=== PATIENT | female | born 1955 | race Caucasian/White ===

== ENCOUNTER 2019-02-21 23:07 | Emergency (ER) | payer OTHER, SELFPAY ==
--- NOTE | 2019-02-21 23:01 | DI.RAD.S_ITS ---
PROCEDURE: XR WRIST RT MIN 3V INDICATIONS: fall with right wrist deformity TECHNIQUE: 3 views of the wrist were acquired. COMPARISON: None. FINDINGS: Bones: There is a fracture seen of the right distal radius, with impaction and comminution. There is intra-articular involvement. There is mild dorsal angulation seen. There is a minimally displaced ulnar styloid fracture seen. No carpal bone fracture is seen. The radiocarpal dislocation can be seen. Degenerative changes are seen, which are most prominent involving the radial aspect of the carpus. No suspicious lytic or blastic lesions are seen. Soft tissues: No suspicious soft tissue calcifications. IMPRESSION: There is an impacted, comminuted, intra-articular fracture of the distal radius, with mild dorsal angulation. There is an associated minimally displaced ulnar styloid fracture. Dictated by: Long Aguirre M.D. on 02/22/2019 at 8:17 Approved by: Long Aguirre M.D. on 02/22/2019 at 8:18
[2019-02-21 23:06] VITALS: BP 148/77; PULSE 72; RESP 15; TEMP 36.4; O2SAT 98; BMI 21.2
--- NOTE | 2019-02-21 23:53 | PC.NURSE ---
Pt removed ring from R ring finger and placed it in the zipper pocket in her pants.
--- NOTE | 2019-02-22 00:32 | ED.FALL ---
HPI - Fall General Chief Complaint: Fall Stated Complaint: ETOH, possible fall, wrist deformity Time Seen by Provider: 02/21/19 23:11 Source: patient and EMS Mode of arrival: EMS Limitations: no limitations History of Present Illness HPI Narrative: 63-year-old female nonsmoker presents by EMS for evaluation of a ground level fall in which she landed on an outstretched right wrist and suffered an injury with obvious deformity. She was admittedly drinking a bit tonight but did not hit her head and has no neck or back pain. She has full recall, is alert and oriented. Her pain is worse with motion and improves with rest. She denies any numbness, tingling or weakness. MD complaint: fall Onset (ago): minute(s) Fall from: standing Fall witnessed: no Place fall occurred: home Loss of consciousness: none Prolonged down time: no Symptoms prior to fall: none Context: tripped/slipped Location of injury - extremities: Right: forearm Severity: mild Related Data Previous Rx's Medication Instructions Recorded hydrocodone-acetaminophen 1 tab PO Q4-6H PRN #10 tab 02/22/19 Allergies Allergy/AdvReac Type Severity Reaction Status Date / Time Sulfa (Sulfonamide Allergy Verified 02/21/19 23:14 Antibiotics) Review of Systems Constitutional Constitutional: Denies chills, Denies fatigue, Denies fever(s), Denies frequent falls, Denies lethargy and Denies weakness Eyes Eyes: Denies change in vision, Denies eye discharge, Denies irritation and Denies loss of vision ENT Ears, Nose, Mouth, and Throat: Denies change in voice, Denies dizziness, Denies neck pain, Denies sore throat and Denies throat swelling Cardiovascular Cardiovascular: Denies chest pain, Denies irregular heart rhythm, Denies lightheadedness, Denies palpitations, Denies dyspnea, Denies dyspnea on exertion and Denies orthopnea Respiratory Respiratory: Denies cough, Denies dyspnea, Denies dyspnea on exertion and Denies wheezing Gastrointestinal Gastrointestinal: Denies abdominal pain, Denies change in bowel habits, Denies diarrhea, Denies nausea and Denies vomiting Genitourinary Genitourinary: Denies hematuria, Denies flank pain, Denies urinary incontinence and Denies urinary urgency Musculoskeletal Musculoskeletal: Denies back pain, Reports joint swelling, Reports limited range of motion, Denies muscle weakness, Denies neck pain, Denies numbness and Denies tingling Integumentary/Breasts Skin/Breast: Denies pruritus, Denies erythema, Denies rash and Denies wounds Neurologic Neurologic: Denies behavioral changes, Denies confusion, Denies dizziness, Denies frequent falls, Denies loss of vision, Denies numbness, Denies tingling and Denies weakness Psychiatric Psychiatric: Denies anxiety, Denies behavioral changes, Denies confusion, Denies depression, Denies homicidal ideation and Denies suicidal ideation Endocrine Endocrine: Denies fatigue, Denies flushing and Denies palpitations Hematologic/Lymphatic Hematologic/Lymphatic: Denies easy bruising Allergic/Immunologic Allergic/Immunologic: Denies urticaria, Denies throat swelling and Denies wheezing Patient History Social History Smoking Status: Never smoker alcohol intake frequency: 3 or more drinks per day Alcohol type: wine Substance Use Type: does not use Exam Narrative Exam Narrative: GENERAL: [63] year old patient appears stated age. Well-nourished, well-developed patient, in mild distress. GCS 15, alert and oriented, full capacity HEAD: Atraumatic. Normocephalic. EYES: Pupils equal round and reactive. Extraocular motions intact. No scleral icterus. No injection or drainage. ENT: Nose without bleeding, purulent drainage. Throat without erythema, tonsillar hypertrophy or exudate. Airway patent. NECK: Trachea midline. Non tender CARDIOVASCULAR: Regular rate and rhythm without murmurs, gallops, or rubs. RESPIRATORY: Clear to auscultation. Breath sounds equal bilaterally. No wheezes, rales, or rhonchi. GASTROINTESTINAL: Abdomen soft, non-tender, nondistended. EXTREMITIES: Pain to right wrist with obvious deformity BACK: Nontender without deformity or crepitance. No flank tenderness. NEURO: AOx3. SKIN: No rash or erythema of visible areas Initial Vital Signs Initial Vital Signs: Vital Signs Temperature 97.6 F 02/21/19 23:06 Pulse Rate 72 02/21/19 23:06 Respiratory Rate 15 02/21/19 23:06 Blood Pressure 148/77 H 02/21/19 23:06 Pulse Oximetry 98 02/21/19 23:06 Procedures Nerve Block Nerve Block 1: Time out performed: Yes Local Anesthetic: bupivacaine 0.5% Amount of anesthesia used (mL): 3 Side: right Nerve Blocks: hematoma block Patient Tolerated Procedure: Well Complications: none Orthopedic Fracture Reduction Fracture #1: Time Out Performed: Yes Side: right Technique: direct manipulation and traction/counter-traction Post-reduction neuro exam: intact Post-reduction vascular exam: intact Splint Applied: Yes Patient Tolerated Procedure: Well Orthopedic Splinting/Casting Injury #1: Side: right Upper Extremity Injury Location: wrist Upper Extremity Immobilizer: sling/shoulder immobilizer and sugar tong splint Post splinting neuro exam: intact Post splinting vascular exam: intact Placed by: Provider Course Orders Ordered: ED Orders 02/21/19 23:01 XR wrist RT min 3V Stat Discontinued Medications Hydrocodone Bitart/Acetaminophen (Vicodin Prepack) 1 bottle MISC SEEINSTR ONE Stop: 02/22/19 00:34 Last Admin: 02/22/19 01:02 Dose: 1 bottle Documented by: WARREN Bupivacaine HCl (Sensorcaine 0.5% (Pf)) 1 ml INJ INTRA-OP ONE Stop: 02/21/19 23:55 Last Admin: 02/22/19 01:02 Dose: 1 ml Documented by: WARREN Vital Signs Vital signs: Vital Signs - 8 hr 02/21/19 23:06 02/22/19 01:07 Temperature 97.6 F Pulse Rate 72 61 Respiratory Rate 15 16 Blood Pressure 148/77 H Blood Pressure [Left Arm] 122/82 Pulse Oximetry 98 95 MDM - Fall Imaging Data Wrist Xray: Attestation: I personally reviewed and interpreted this imaging study as follows: My impression: Distal radius fx Discharge Plan Departure Patient Disposition: Home Clinical Impression: Distal radius fracture, right Qualifiers: Encounter type: initial encounter Fracture type: closed Fracture morphology: Colles' Qualified Code(s): S52.531A - Colles' fracture of right radius, initial encounter for closed fracture Discharge Date/Time: 02/22/19 01:10 Activity Restrictions/Additional Instructions: *You have been diagnosed with [right distal radius fracture] *What to do: *Take medications as directed *Follow up with [facility] in 2-3 days, call for an appointment. Let them know you were seen in the Emergency Department and that we ask that you be seen in follow up *Return to ER if you should have any new, worsening or concerning symptoms Prescriptions: New hydrocodone-acetaminophen 5-325 mg tablet 1 tab PO Q4-6H PRN (Reason: pain) Qty: 10 RF: 0 Referrals: Kamila Mcdonnell MD [Physician] -
[2019-02-22] MEDS: HYDROCODONE/ACET 5/325 PREPACK 1 BOTTLE MISC (01:02)
[2019-02-22] MEDS: BUPIVACAINE 0.5% (PF) VIAL 1 ML INJ (01:02)
[2019-02-22 01:07] VITALS: BP 122/82; PULSE 61; RESP 16; O2SAT 95
== END 2019-02-22 01:10 | disposition home or self-care (01) ==
PROVIDERS: Emergency Provider Emergency Medicine
DX: S52.531A Colles' fracture of right radius, initial encounter for closed fracture (principal); W18.30XA Fall on same level, unspecified, initial encounter
CPT/HCPCS: 25565; 64450; 73110; 99282; 99283

== ENCOUNTER 2019-03-02 09:23 | Day surgery (SDC) | payer OTHER, SELFPAY ==
[2019-03-02 09:40] VITALS: BP 123/66; PULSE 57; RESP 16; TEMP 36.7; O2SAT 98; BMI 21.2
[2019-03-02] MEDS: LACTATED RINGERS 1,000 ML 42 ML IV ×2 (10:08→12:23)
--- NOTE | 2019-03-02 10:37 | PM.PREOP ---
Pre-operative Note Interval Note History & Physical reviewed/Exam performed by Physician: Yes Changes to H&P: No
[2019-03-02] MEDS: MIDAZOLAM 2 MG/2 ML VIAL IV (10:54)
[2019-03-02] MEDS: fentaNYL 100 MCG/2 ML INJ 50 MCG IV (10:55)
--- NOTE | 2019-03-02 11:16 | SUR.PREOP ---
Block start time 1054. Monitoring initiated and maintained throughout procedure. 2 L of oxygen administered via NC; medications given per anesthesiologist instructions. Patient remained stable throughout procedure, no adverse reactions noted. Block end time 1107.
[2019-03-02] MEDS: CEFAZOLIN 2 GM/100 ML FROZ.PIGGY IV (11:28)
--- NOTE | 2019-03-02 11:49 | SUR.OPER ---
Supine on padded OR bed, head on pillow, Left arm secured on padded arm board at <90 degrees abduction, right arm prepped in sterile field on hand table, legs uncrossed, safety belt at thigh, blanket over lower legs.
[2019-03-02] MEDS: BUPIVACAINE 0.25% W/ EPI 30 ML VIAL INJ (11:59)
[2019-03-02 13:20] VITALS: BP 125/73; PULSE 77; RESP 22; TEMP 36.2; O2SAT 96
[2019-03-02 13:25] VITALS: BP 110/70; PULSE 80; RESP 15; O2SAT 95
[2019-03-02 13:30] VITALS: BP 120/78; PULSE 82; RESP 13; O2SAT 94
[2019-03-02 13:35] VITALS: PULSE 81; RESP 15; O2SAT 94
--- NOTE | 2019-03-02 13:37 | P.OP_ITS ---
Operative Date/Time/Diagnoses Date of procedure: 03/02/19 Time of procedure: 11:45 Pre-op diagnosis: Closed intra-articular fracture right distal radius S52. 571 Post-op diagnosis: same Procedure & Clinicians Procedure: 1. Open reduction internal fixation right distal radius fracture intra-articular. CPT code 16568 Same procedure as scheduled: Yes Indications: The patient is a 63-year-old female that sustained a fall onto her wooden floor causing a displaced right hand distal radius fracture. The patient is right-hand dominant. She was indicated for open reduction internal fixation prevent malunion prolonged dysfunction loss of range of motion wrist arthritis. Risks benefits and alternatives to procedure were discussed at length the patient expressed understanding these included but were not limited to bleeding, infection, damage to nerves, prominent hardware, pain, malunion, nonunion, blood clots, pulmonary embolism, cardiovascular risks associated with general anesthesia. Consent was signed in the office. Surgeon: Kamila Mcdonnell Click Yes if Unassisted: Yes Anesthesia Type: General, Peripheral nerve block and Local Operative Notes Findings: Dorsally displaced distal radius fracture with shortening and comminution. Small simple split into the articular surface Closure Type: primary Specimen(s): none sent Prosthetic devices, grafts, tissues, transplants, or devices: Hand innovations short right side distal radius volar locking plate and screws Estimated Blood Loss (mL): 5 Blood products transfused: none Tourniquet time (min): 63 Procedure in detail: Patient is is a in the right distal radius fracture was indicated for operative reduction and fixation to prevent malunion a prolonged dysfunction and loss range of motion wrist arthritis. The risks benefits and alternatives of procedure were discussed at length the patient. Patient was seen in the preoperative area the site of surgery was marked. This was the right wrist. The patient was brought to the operating room and placed on the operative table in a standard fashion in the supine position with the arm on a hand table. General anesthesia was administered. Preoperative block was placed with the anesthesia team for postoperative pain control. SCDs were on the legs and all bony prominences were padded. Well-padded brachial tourniquet was placed. A formal time-out procedure was called to confirm the patient's side and site of surgery and administration of appropriate preoperative antibiotics. All were in agreement. The standard FCR approach was drawn onto the wrist. Exsanguination was used the tourniquet was elevated 250 mm of mercury. Sharp plate was used for the standard FCR approach to the wrist and the incision was made. The FCR was exposed. The sheath was opened and the tendon was retracted ulnar to protect the palmar cutaneous branch of the median nerve and the neurovascular structures. Floor of the FCR was opened to expose the deep muscles. The FPL was retracted ulnarly and the pronator quadratus was released in an L fashion from the radial border and reflected ulnar to expose the distal radius in the distal fracture. Fracture was disimpacted and cleaned. The brachioradialis was released from the distal fragment. Fracture was reduced with traction, flexion ulnar deviation. A 045 K-wire was advanced percutaneously from the radial styloid to the metaphysis to hold the reduction. Reduction was checked on fluoroscopy and the radial inclination and volar tilt were recreated. A short 3 hole right side hand innovations distal radius loc sherif plate was positioned and pinned in place. This was checked under fluoroscopy for satisfactory position. Then a nonlocking 3 5 screw was placed in the oblong hole bicortical. The nonlocking screw was placed distally to bring the bone to the plate followed by locking screw placement distally. K- wires removed and final nonlocking screws were placed in the shaft. Final intraoperative images were obtained and reviewed demonstrating no evidence of intra-articular penetration or hardware prominence. Wrist motion was checked and a full range of motion was maintained in the DRUJ was stable. Wound was then irrigated and closed in layers. Three 0 Vicryl was placed deep subcutaneous with 4 0 Monocryl and 3 O nylon in the skin. Prior to closure the tourniquet was released and hemostasis was achieved. Sterile dressings and a volar splint were applied. There were no immediate complications noted. All surgical counts were correct. Patient tolerated the procedure well was taken recovery room. Complications: none Post-operative Condition: stable Disposition: PACU Plan for aftercare: Limited weight-bearing no more than a coffee cup or [address] Keep clean dry and intact. Elevate and ice for edema control. Follow up in 2 weeks for x-rays and suture removal and placement of removal wrist brace.
--- NOTE | 2019-03-02 13:37 | SUR.PHASEI ---
To OPD, A&O, talking, taking ice chips, CMS as expected, warm, refill adequate.
[2019-03-02 14:25] VITALS: BP 108/69; PULSE 63; RESP 16; TEMP 36.3; O2SAT 98
== END 2019-03-02 14:40 | disposition home or self-care (01) ==
PROVIDERS: Visit Provider Orthopaedic Surgery Foot and Ankle Surgery
PROC: (CPT 25608; principal; 2019-03-02 11:15)
DX: S52.571A Other intraarticular fracture of lower end of right radius, initial encounter for closed fracture (principal); G89.18 Other acute postprocedural pain; W01.0XXA Fall on same level from slipping, tripping and stumbling without subsequent striking against object, initial encounter
CPT/HCPCS: 25608; 64415; 64450; J0690; J1100; J2250; J2405; J2704; J3010

== ENCOUNTER → 2020-03-03 07:05 | Outpatient (CLI) | payer OTHER, SELFPAY ==
[2020-03-03 08:08] LABS: Add Manual Diff / Slide Review NO; Basophils Absolute Auto 0 /uL (0-100); Basophils Percent Auto 1.1 % (0-2); Eosinophils Absolute Auto 100 /uL (0-450); Eosinophils Percent Auto 1.7 % (2-4); Hematocrit 41.1 % (36-46); Hemoglobin 13.8 g/dL (12.0-16.0); Lymphocytes Absolute Auto 1800 /uL (1100-4500); Lymphocytes Percent Auto 50.7 % (25-40); Mean Corpuscular HGB Conc 33.6 % (30-36); Mean Corpuscular Hemoglobin 32.1 PG (26-34); Mean Corpuscular Volume 95.4 fL (80-100); Monocytes Absolute Auto 400 /uL (0-900); Monocytes Percent Auto 10.5 % (3-14); Neutrophils Absolute Auto 1300 /uL (1500-7000); Platelet Count 259 X10^3/uL (150-400); Red Blood Cell Count 4.31 X10^6/uL (4.0-5.2); Red Cell Distribution Width 12.4 % (11.6-14.8); White Blood Cell Count 3.6 X10^3/uL (4.5-11.0)
[2020-03-03 08:22] LABS: Hemoglobin A1C% w Est Avg Glu 5.3 % (4.0-6.0)
[2020-03-03 08:55] LABS: BUN Creatinine Ratio 24.6 (6-22); Blood Urea Nitrogen 16 mg/dL (7-17); Calcium 9.4 mg/dL (8.4-10.2); Carbon Dioxide 32 mmol/L (22-32); Chloride 104 mmol/L (98-107); Cholesterol 253 mg/dL (140-199); Estimated Glomerular Filt Rate > 60.0 mL/min (>60); Glucose 86 mg/dL (80-110); HDL Cholesterol 79 mg/dL (40-60); HEMOLYSIS < 15 (0-50); LDL Cholesterol Calculated 162 mg/dL (<100); Sodium 138 mmol/L (137-145); Triglycerides 61 mg/dL (35-150)
== END ==
PROVIDERS: PCP Internal Medicine; Referring Provider Orthopaedic Surgery; Visit Provider Orthopaedic Surgery
DX: Z01.818 Encounter for other preprocedural examination (principal); M25.511 Pain in right shoulder; R73.9 Hyperglycemia, unspecified; Z01.812 Encounter for preprocedural laboratory examination; E78.2 Mixed hyperlipidemia; M15.0 Primary generalized (osteo)arthritis
CPT/HCPCS: 36415; 80048; 80061; 83036; 85025; 93005

== ENCOUNTER → 2020-03-14 08:54 | Outpatient (CLI) | payer OTHER, SELFPAY ==
[2020-03-14 11:27] LABS: COVID19 -Nasal RAPID Negative (Negative)
== END ==
PROVIDERS: PCP Internal Medicine; Visit Provider Physician Assistant
DX: Z11.59 Encounter for screening for other viral diseases (principal)
CPT/HCPCS: 87635

== ENCOUNTER 2020-03-16 07:00 | Inpatient (IN) | payer OTHER, SELFPAY ==
[2020-03-04 08:27] VITALS: BMI 21.7
[2020-03-16] VITALS (15 sets, daily range): BP systolic 107–127; BP diastolic 42–83; PULSE 60–93; RESP 14–20; TEMP 35.6–36.9; O2SAT 96–100; BMI 21.7
--- NOTE | 2020-03-16 06:00 | DI.RAD.S_ITS ---
PROCEDURE: XR SHOULDER RT 1V INDICATIONS: post op total shoulder TECHNIQUE: Frontal view of the shoulder were acquired. COMPARISON: None. FINDINGS: Bones: No fractures or dislocations. No suspicious bony lesions. Visualized ribs appear intact. Right shoulder arthroplasty has been performed earlier same day. Normal alignment. Soft tissues: No suspicious soft tissue calcifications. IMPRESSION: Normal alignment after right shoulder arthroplasty. Dictated by: Liam Castellanos M.D. on 03/16/2020 at 11:37 Approved by: Liam Castellanos M.D. on 03/16/2020 at 11:37
[2020-03-16] MEDS: LACTATED RINGERS 1,000 ML 42 ML IV ×2 (08:04→10:11)
[2020-03-16] MEDS: ACETAMINOPHEN 325 MG TABLET 975 MG PO ×2 (08:13→14:25)
[2020-03-16] MEDS: PREGABALIN 75 MG CAPSULE PO (08:14)
--- NOTE | 2020-03-16 08:33 | PM.PREOP ---
Pre-operative Note COVID-19 COVID-19 status: Negative Result date/Date tested (Pos, Neg/Pending): 03/14/20 Interval Note History & Physical reviewed/Exam performed by Physician: Yes Changes to H&P: No
--- NOTE | 2020-03-16 08:55 | SUR.PREOP ---
0840[] . Monitoring initiated and maintained throughout procedure. Oxygen at 2LNP; medications given by Dr. Davis. Patient remained stable throughout procedure, no adverse reactions noted. Remained awake, oriented, comfortable throughout. Block end time 0851[].
[2020-03-16] MEDS: CEFAZOLIN 2 GM/100 ML FROZ.PIGGY IV (08:58)
[2020-03-16] MEDS: TRANEXAMIC ACID 1,000 MG VIAL 1000 MG INJ ×2 (09:10→10:41)
[2020-03-16] MEDS: BUPIVACAINE 0.5% W/ EPI (PF) 30 ML VIAL 10 ML INJ (09:28)
[2020-03-16] MEDS: THROMBIN (RECOMBINANT) 5,000 UNIT VIAL 5000 UNIT TOP (09:29)
--- NOTE | 2020-03-16 09:32 | PM.PROC.1 ---
Procedures Date/Time Date of procedure: 03/16/20 Time of procedure: 08:40 General Procedure description: Ultrasound guided interscalene brachial plexus nerve block for post op pain control after right total shoulder arthroplasty by Dr. Fernandes. Risk and benefits of procedure discussed with patient. ASA monitoring applied to patient. O2 given via nasal cannula. 2 mg Versed and 50 mcg fentanyl given for procedural sedation. Skin site was prepped with chlorhexidine and allowed to fully dry. Sterile gloves, mask, hat and probe cover were used to maintain sterility. 2% lidocaine and 30ga needle was used to make a small skin wheal at needle insertion site. Under ultrasound guidance, a 21ga 50mm Pajunk needle was directed into the interscalene groove (middle/anterior scalenes) near the brachial plexus. Patient reported no parasthesias. After negative aspiration, 20 mL 0.5% ropivicaine and 10mg dexamethasone were injected around brachial plexus. Patient tolerated procedure well.
--- NOTE | 2020-03-16 09:36 | SUR.OPER ---
Beach chair with Schlein shoulder positioner. Lower body on padded OR bed. Head in foam padded head cradle, secured with straps. Non-operative arm secured <90 degrees abduction. Pillow under knees. Safety belt at thigh. Cloth tape over blanket over lower legs.
--- NOTE | 2020-03-16 10:57 | PM.OP.1 ---
Operative Date/Time/Diagnoses Date of procedure: 03/16/20 Time of procedure: 10:57 Pre-op diagnosis: Osteoarthritis Post-op diagnosis: same Procedure & Clinicians Procedure: Right total shoulder replacement Same procedure as scheduled: Yes Indications: The patient has had progressively worsening right shoulder pain with radiographic changes consistent with arthritis. Non-operative management has failed and the patient has requested total shoulder replacement. The risks, benefits and alternatives to surgery were discussed with the patient prior to proceeding. Risks discussed included, but were not limited to, failure to relieve pain, stiffness, infection, nerve damage, deep venous thrombosis, pulmonary embolism, stroke, coma, heart attack, permanent paralysis and , as well as the potential need for eventual revision of the prosthetic. Surgeon: Dominic Fernandes Flying I Instructor: Lore Calderon Click Yes if Unassisted: No Anesthesia Type: General, Peripheral nerve block and Local Operative Notes Findings: Significant osteoarthritis with a large inferior osteophyte on the humerus and mild B2 glenoid morphology. Closure Type: primary Specimen(s): none sent Prosthetic devices, grafts, tissues, transplants, or devices: Implants used during this procedure manufactured by the [employer] and included an eclipse stem was total shoulder system with a size 43 trunion, a medium cage screw and a 43/18 humeral head. In addition there was a medium [employer] Vault[employer] glenoid component. In addition a ?speed bridge? of 4 anchors was used to close the subscapularis. Applied: implant(s) Estimated Blood Loss (mL): 100 Blood products transfused: none Procedure in detail: The patient was seen in the pre-operative area, where the patient identified the right shoulder as the operative site and this was marked with my initials. The patient received pre-operative antibiotics, underwent an interscalene block, and was taken to the operating room and placed on the operative table in the supine position. After satisfactory anesthesia, a full ?time out? was performed. The patient was repositioned in the ?beach chair? position using a dedicated positioner. All pressure points were well padded, and the knees were slightly bent to prevent tension on the sciatic nerves. The right arm was prepared from the fingers to the base of the neck with ChloroPrep in the usual fashion and draped through sterile drapes. An approximately 10 cm incision was created, starting at the clavicle above the coracoid process and extended towards the deltoid insertion. The deltopectoral interval was used to access the shoulder. The cephalic vein was unfortunately damaged during the approach and ligated. A self retaining retractor was placed. The upper centimeter of the pectoralis major tendon was released. The ?three sisters? were identified and cauterized. The axillary nerve was palpated and protected throughout the case. The biceps was released from its groove and tenodesed over the top of the pectoralis major tendon. The subscapularis was released from the lesser tuberosity with a subscapularis peel and tagged for later repair. The shoulder was dislocated and a cutting guide was used for the proximal humeral osteotomy in 30 degrees of retroversion. After removing the osteophytes, the trunion was sized and the central score nakul for the trunion created. A proximal humeral protector was then placed. We then removed the self-retaining retractor and placed retractors to access the glenoid. The subscapularis was released with a ?360 degree release? with care being taken to protect the axillary nerve with the inferior portion of this procedure. The remnant of labrum and biceps stump were removed. The appropriate size reamer was chosen with the glenoid sizer, and the guide pin placed. The glenoid was appropriately reamed, removing the ?high side? anteriorly to correct for the B2 morphology. The central hole was enlarged and the guide for the superior hole was used and the inferior keel hole created. The trial glenoid was placed with good stability. We then cemented the final implant into place after irrigating the peg holes and drying them with thrombin-soaked Gelfoam. The central peg was coated with bone graft and demineralized bone matrix for ingrowth. We returned our attention to the humerus. The proximal humeral retractor was removed. The central guide PEG was placed in the score nakul. The final trunion was impacted into position. The central cage screw was inserted through the trunion and tightened. Trial heads were applied. Stability was checked with 50% posterior translation with spontaneous reduction, 45? external rotation at the side with the subscapularis in the repaired position, and 70? internal rotation in the ?scare [place] position?. This was felt to be satisfactory and the final humeral head was impacted in position. The joint was irrigated. The subscapularis was repaired using a ?speed bridge? with 2 anchors placed near the osteotomy and 2 anchors placed in the bicipital groove. The retention sutures from the medial anchors were tied together to provide additional medial row repair. The superior aspect of the subscapularis was repaired to the leading edge of the supraspinatus with a single [id number] suture to reapproximate the rotator interval. The deltopectoral interval was closed with interrupted 0 Vicryl. The subcutaneous layer was closed with 3-0 Vicryl, and the skin with a running 3-0 V-Lock suture and SteriStrips. An Aquacel Ag dressing was applied, the patient?s arm was placed in a sling, and the patient was taken to recovery having tolerated the procedure well. Complications: none Post-operative Condition: stable Disposition: PACU Plan for aftercare: The patient will be maintained on a standard total shoulder replacement protocol with passive range of motion limited to 90 degrees forward flexion, 0 degrees external rotation at the side, 0 degrees abduction and internal rotation to the body. The patient will receive aspirin and sequential compression devices for DVT prophylaxis. The patient will be discharged home when safe for the home environment, likely tomorrow.
--- NOTE | 2020-03-16 11:10 | SUR.PHASEI ---
pt. presents from OR to phase 1 alert and talking, no pain, moving all extremities. [facility] noted some small petichia rash to lateral left thigh due to the cautery pad. ongoing monitoring.
[2020-03-16] MEDS: OXYCODONE/ACETAMINOPHEN 5/325 TABLET 1 TAB PO (11:26)
--- NOTE | 2020-03-16 14:52 | PC.NURSE ---
Poss d/c: had a block and remains pain free still. She and her spouse would still like to go home today. Seen by PT and did pass eval. She has eaten w/out problems. Has voided. had a sore throat on arrival to floor from anesth during surg. Does have a cough, feels hoarse, takes ice chips which are soothing. Was able to eat some soup. Sling on and fits correctly. Rt shoulder aquacel is c/d/i. lt lat thigh with small bruise which she got during OR. Also has some posterior shoulder bruising and swelling - scapula area. Ortho made aware and they will come and see her later. No pain. Block is still in effect. Can move fingers sl but has decreased sensation. Radial pulse present, brisk cap refill.
--- NOTE | 2020-03-16 15:53 | PT.IIE ---
Current Diagnoses Primary osteoarthritis, right shoulder (03/16/20) Surgery Performed Operation Date: 03/16/20 08:45 Actual Procedures p Total Shoulder Arthroplasty(Right) - Dominic Fernandes MD Surgical History (Last Updated 03/04/20 @ 08:29 by Shoshana Fonseca, RN) History of open reduction and internal fixation (ORIF) procedure (03/02/19) Medical History (Last Updated 03/04/20 @ 09:08 by Shoshana Fonseca RN) Osteoarthritis Physical Therapy Inpatient Evaluation/Re-Eval M1 PT/OT-IP Prior Functional Status Start: 03/16/20 13:31 Freq: NEEDED Status: Active Protocol: Document 03/16/20 15:23 DE (Rec: 03/16/20 15:47 DE [id number]) Medical Review Prior Functional Status Medical History Reviewed Yes Diet/Fluid Consistency Regular Communication WNL. No deficits noted. Able to make needs known. Mobility and Gait IND for all mobility and amb without AD or limitations at baseline. Activities of Daily Living and IADL's IND for all ADLs and IADLs including driving at baseline. Prior Functional Level (Other details) Hx of R distal radius fx followed by ORIF in February 2019. Social History Household Members significant other Living Arrangements House Number of Floors (Floors) One Floor Number of Stairs To Enter/Railing? 3 RADAMES with R railing up. 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 Pt works for [employer] from home and took some time off. Pt plans to sleep in a recliner. M2 PT-IP Current Condition Start: 03/16/20 13:31 Freq: NEEDED Status: Active Protocol: Document 03/16/20 15:23 DE (Rec: 03/16/20 15:47 DE [id number]) Physical Therapy Current Condition Current Condition Evaluation Date 03/16/20 Treatment Diagnosis R total shoulder replacement; Difficulty with performing ADLs. Onset Date 03/16/20 Precautions Shoulder Precautions Sling,PROM,Internal Rotation to Body,No External Rotation, No Abduction,Forward Flexion to 90 degrees,Pendulums M3 PT-IP Subjective Start: 03/16/20 13:31 Freq: NEEDED Status: Active Protocol: Document 03/16/20 15:23 DE (Rec: 03/16/20 15:47 DE [id number]) Subjective Physical Therapy Visit Type Type Initial Evaluation Visit Start Time 14:00 Visit Stop Time 14:35 Total Visit Minutes 35 Notes SPT Juan Carlos led session under direct supervision of PT Moshe. 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 M4 PT-IP Mobility and Gait Start: 03/16/20 13:31 Freq: NEEDED Status: Active Protocol: Document 03/16/20 15:23 DE (Rec: 03/16/20 15:47 DE [id number]) PT-Bed Mobility Assessment Supine to Sit Supine to Sit Standby Assistance,Head of Bed Elevated Sit to Supine Sit to Supine Standby Assistance,Head of Bed Elevated PT-Transfer Assessment Sit to and From Stand Sit to and from Stand Standby Assistance Equipment Transfer Assistive Device Gait Belt,Front Wheeled Walker Orthotic/Prosthetic Devices or Brace: No Transfers Transfer Destination Bed Transfer Technique Amb Transfer Ability Level of Assist Standby Assistance Comments Mobility Comments Pt was lying supine in bed with elevated HOB upon arrival . Pt's spouse was present at bedside. Pt completed supine to sit on L side EOB with SBA and elevated HOB. Pt then amb ~5 ft to the sink and stood for ~2 min while getting the sling fitted. Pt then amb ~300 ft total in the hallway to the stairs and back to the room with SBA. Pt demonstrated normal gait pattern without any deviations. Pt then performed 3 steps up and down x2 with R railing up. Pt used step-over pattern. Pt was steady throughout amb and stair climbing without any LOB . Pt amb back to the room and went to supine in bed wih SBA. Call light placed within reach. remained in the room. Gait Assessment Gait Gait Assistance Required: Standby Assistance Distance (Feet) 300 Assistive Devices Assistive Device Gait Belt Orthotic/Prosthetic Devices or Brace: No Gait Deviations General Gait Pattern Within Normal Limits Comments Gait Comments See mobility comments. Stair Climbing Assessment Evaluation Level of Assist On Stairs Standby Assistance Devices Stair Climbing Assistive Devices Right Railing Technique/Endurance Stair Climbing Direction Ascend and Descend Stair Climbing Technique Step Over Step Number of Steps Climbed 3 Query Text: Stair Climbing Set # Repetitions (reps) 2 Comments Stair Climbing Comments See mobility comments. PT-Balance Assessment Sitting Balance and Reactions Static Sitting Balance Ability Normal Dynamic Sitting Balance Ability Normal Standing Balance and Reactions Static Standing Balance Ability Normal Dynamic Standing Balance Ability Normal M5 PT-IP Objective Assessments Start: 03/16/20 13:31 Freq: NEEDED Status: Active Protocol: Document 03/16/20 15:23 DE (Rec: 03/16/20 15:47 DE [id number]) Orientation Orientation/Cognition Level of Alertness Alert Orientation Name,Age,Birthday,Month,Date, Year,Day of Week,Place, Situation Language Function Ability No Deficits Noted Safety Awareness Understands Safety Issues Memory Description No Deficits Noted Gross Range of Motion Upper Extremity ROM Assessment Right Impaired Strength Upper Extremity Strength Assessment Right Impaired Coordination Assessment Gross Coordination Gross Coordination WNL Sensation Assessment Sensation Gross Sensation Right UE Impaired Light Touch Impaired Comments Sensation Comments Pt reports she still has numbness in her RUE. Muscle Tone Muscle Tone WNL Yes M6 PT-IP Treatment Start: 03/16/20 13:31 Freq: NEEDED Status: Active Protocol: Document 03/16/20 15:23 DE (Rec: 03/16/20 15:47 DE [id number]) Physical Therapy Treatment Exercises Exercises Shoulder Pendulums Education Education Provided Precautions,Post-Op Packet, Safety Other Treatments Other Treatment Performed Pt education was provided on sling fitting, precautions, safety, and role of PT. M7 PT-IP Assessment and Plan Start: 03/16/20 13:31 Freq: NEEDED Status: Active Protocol: Document 03/16/20 15:23 DE (Rec: 03/16/20 15:47 WA [id number]) PT Summary Assessment and Plan Potential Rehabilitation Potential Excellent Status of Condition at Evaluation Stable Summary Impairments Pain,ROM,Strength,Sensation, Bed Mobility,Transfers,Gait, Activity Tolerance Progress Towards Goals Safe For Discharge Assessment Summary Shoshana is a 64 yo female POD0 s /p R total shoulder replacement with hx of R distal radius fx followed by ORIF in Feb 2019. At baseline, pt was IND for all mobility, amb, and ADLs without AD or limitations. On evaluation, pt was SBA for all mobility, transfers, amb, and stair climbing. Pt amb ~300 ft and performed 3 steps x2 with R railing up. Pt was steady throughout the entire session without any LOB. PT anticipates pt will be safe to d/c home with assistance. Pt will benefit from outpatient PT to improve shoulder ROM and strength. Frequency of Treatment Frequency Of Treatment Discharge Discharge Recommendations PT Discharge Recommendations Home with Assistance, Outpatient PT Equipment Needed for Home Before PT recommended shower chair to Discharge be able to rest her RUE while showering. Transportation Needs at Discharge Private Vehicle This session was led by SPT Juan Carlos Cline and supervised by me PT Alma Gibbs. I, PT Alma Gibbs personally reviewed and approved this note,
[2020-03-16] MEDS: OXYCODONE IR 5 MG TABLET PO (16:48)
[2020-03-16] MEDS: hydrOXYzine pamoate 25 MG CAPSULE PO (16:48)
--- NOTE | 2020-03-16 17:26 | PC.NURSE ---
Discharge Note- Patient discharged home. Reviewed discharge instructions and educations with patient and spouse. Paperwork signed. IV removed and bandage applied. Spouse helped patient dress. Dressing to shoulder C/D/I and arm in sling. Personal items packed up. Rx's given to patient. Patient left via wheelchair tp private car with all personal items at 1655.
== END 2020-03-16 16:55 | disposition home or self-care (01) | DRG 483 ==
PROVIDERS: Admitting Provider Orthopaedic Surgery; PCP Internal Medicine; Referring Provider Internal Medicine; Visit Provider Orthopaedic Surgery
PROC: 0RQJ0ZZ Repair Right Shoulder Joint, Open Approach (ICD-10-PCS; CPT 23472; principal; 2020-03-16 08:45)
DX: M19.011 Primary osteoarthritis, right shoulder (principal); M25.711 Osteophyte, right shoulder
CPT/HCPCS: 64450; 73020; 97161; 97535; C1776; J0690; J1100; J2250; J2405; J2704; J3010

== ENCOUNTER → 2020-06-13 19:06 | Outpatient (ROUT) | payer OTHER, SELFPAY ==
[2020-03-16 12:05] VITALS: BMI 21.7
[2020-06-13 19:30] LABS: Cholesterol 289 mg/dL (140-199); HDL Cholesterol 100 mg/dL (40-60); LDL Cholesterol Calculated 169 mg/dL (<100); Triglycerides 99 mg/dL (35-150)
== END ==
PROVIDERS: PCP Internal Medicine; Visit Provider Internal Medicine
DX: E78.2 Mixed hyperlipidemia (principal)
CPT/HCPCS: 80061